=== PATIENT | female | born 1980 | race African-American/Black ===

== ENCOUNTER 2018-11-14 12:16 | Emergency (ER) | payer BC ==
[~2018-11-14] VITALS: Ht 152.4 cm; Wt 65.8 kg
[2018-11-14] MEDS ORDERED: IOHEXOL 300MG/ML 100 ML INFUS..BTL ONE (12:40)
[2018-11-14] MEDS ORDERED: IV NORMAL SALINE 250 ML IV ONE (12:40)
[2018-11-14] MEDS ORDERED: SWABABLE VALVE TRANSFER SET EA MC ONE (12:40)
[2018-11-14] MEDS ORDERED: methylPREDNISolone SOD SUCC 125 MG/2 ML VIAL IV ONE (12:45)
[2018-11-14] MEDS ORDERED: methylPREDNISolone SOD SUCC 125 MG/2 ML VIAL ONE (12:46)
[2018-11-14 12:50] LABS: BASOPHILS # (AUTO) 0.1 K/uL (0.0-8.0); BASOPHILS % (AUTO) 0.7 % (0.0-2.0); EOSINOPHILS % (AUTO) 0.2 % (0.0-7.0); HEMATOCRIT 36.1 % (31.2-41.9); HEMOGLOBIN 11.7 g/dL (10.9-14.3); LYMPHOCYTES # (AUTO) 0.7 K/uL (20.0-40.0); LYMPHOCYTES % (AUTO) 5.7 % (20.5-51.5); MEAN CORPUSCULAR HEMOGLOBIN 23.5 uug (24.7-32.8); MEAN CORPUSCULAR HGB CONC 32 g/dL (32.3-35.6); MEAN CORPUSCULAR VOLUME 72.7 fL (75.5-95.3); MONOCYTES # (AUTO) 1.2 K/uL (2.0-10.0); MONOCYTES % (AUTO) 9.2 % (0.0-11.0); NEUTROPHILS # (AUTO) 10.9 K/uL (1.8-8.9); NEUTROPHILS % (AUTO) 84.2 % (38.5-71.5); PLATELET COUNT (AUTO) 257 K/uL (179-408); RED BLOOD CELL COUNT(AUTO) 4.97 MIL/uL (3.63-4.92)
[2018-11-14 12:59] LABS: CREATININE 3.1 mg/dL (0.6-1.3); POTASSIUM 3.7 mmol/L (3.5-5.1)
[2018-11-14 13:04] LABS: BILIRUBIN,DIRECT 0.2 mg/dL (0.0-0.2); BILIRUBIN,TOTAL 0.6 mg/dL (0.2-1.0); TOTAL PROTEIN, SERUM 7.1 g/dL (6.4-8.2)
[2018-11-14] MEDS ORDERED: IV NORMAL SALINE 1000 ML BAG IV ONE (13:15)
--- NOTE | 2018-11-14 13:51 | NUR ---
pt on bed with head elevated.
[2018-11-14] MEDS ORDERED: LABETALOL HCL 100 MG/20 ML VIAL ONE (14:02)
[2018-11-14] MEDS ORDERED: LEVETIRACETAM 500 MG/5 ML VIAL IV ONE (14:08)
[2018-11-14] MEDS ORDERED: LEVETIRACETAM IV 500 MG in IV DEXTROSE 5% 100 ML IV ONE (14:15)
[2018-11-14] MEDS ORDERED: LABETALOL HCL 100 MG/20 ML VIAL IV ONE (14:15)
[2018-11-14] MEDS ORDERED: hydrALAZINE HCL 20 MG/1 ML VIAL ONE (14:59)
[2018-11-14] MEDS ORDERED: hydrALAZINE HCL 20 MG/1 ML VIAL IV ONE (15:00)
[2018-11-14] MEDS ORDERED: NICARDIPINE IN NS 200 ML IV ONE ×2 (15:28→17:20)
[2018-11-14] MEDS ORDERED: NICARDIPINE IN NS 200 ML IV PRN ×2 (15:30→17:30)
--- NOTE | 2018-11-14 15:31 | NUR ---
CARDENE DRIP STARTED AT 1531 AT 3MG/HR PER PROTOCOL
--- NOTE | 2018-11-14 15:37 | NUR ---
john fu called back. pt is going to [facility] bed 4515, accepting md is monica, report number is [phone].
--- NOTE | 2018-11-14 15:40 | NUR ---
PPT CO HEADACHE WHEN ASKED BUT REFUSES PAIN MED AT THIS TIME.
--- NOTE | 2018-11-14 15:57 | NUR ---
INCREASED THE RATE OF CARDENE TO 5MG/HR
--- NOTE | 2018-11-14 16:02 | NUR ---
Hermann castro in [facility] - 11/14/18 at 1614 by MARK INCREASED THE CARDENE RATE TO 5MG/HR
--- NOTE | 2018-11-14 16:02 | NUR ---
INCREASED THE CARDENE RATE TO 10MG/HR
--- NOTE | 2018-11-14 16:23 | NUR ---
THE GOAL BP ACHIEVED, DECREASED THE CARDENE RATE TO 3MG/HR PER PROTOCOL
--- NOTE | 2018-11-14 17:30 | NUR ---
PT TRANSFERED TO [facility] IN STABLE CONDITION. PT RMAINED LETHARGIC BUT AROUSABLE AND NO CHANGE IN MENTAL STATUS. AT MANY TIMES FATHER OR SISTER WERE AT BEDSIDE. SIS TER AT BEDSIDE AT THE TIME OF TRANSFER TO [facility]. Addendum: 11/14/18 at 1739 by SPOCRISMANSO PT TONGUE LESS SWOLLEN. PT ABLE TO SWALLOW SALIVA WITHOT DIFFICULTY, RA 99%. PT REMAINED NPO THE WHOLE ER STAY.
[2018-11-14 17:35] VITALS: BP 134/73
== END 2018-11-14 17:30 | disposition other institution (70) ==
LOC: ER 12:16
DX: I61.9 Nontraumatic intracerebral hemorrhage, unspecified (principal); N19 Unspecified kidney failure; Z88.8 Allergy status to other drugs, medicaments and biological substances
CPT/HCPCS: 36415; 70450; 70490; 80048; 80076; 85025; 85730; 93005; 96365; 96375; 99291; G0481; J0360; J1953; J2930; J3490; J7060; Q9967; A4663; J7030; J7050